=== PATIENT | male | born 1935 | race Caucasian/White ===

== ENCOUNTER 2016-12-08 17:52 | Emergency (ER) | payer MEDICARE ==
[~2016-12-08 17:52] MED LIST: EPINEPHRINE ABBOJECT 1 MG ONE; Magnesium Sulfate 1 GM/2 ML VIAL ONE
[2016-12-08 18:06] VITALS: PULSE 0
[2016-12-08 18:09] LABS: A-aADO2 452; ARTERIAL BLD GAS O2 SATURATION 100.6 % (95-100); ARTERIAL BLOOD GAS BASE EXCESS -22.1 (-2.0-2.0); ARTERIAL BLOOD GAS FIO2 100 %; ARTERIAL BLOOD GAS PO2 214 mmHg (75-100); ARTERIAL BLOOD GAS pH 6.98 (7.35-7.45)
--- NOTE | 2016-12-08 18:54 | ERPHSYRPT ---
- History of Present Illness Time Seen by Provider: 12/08/16 17:52 Source: family, EMS Exam Limitations: clinical condition Patient Subjective Stated Complaint: ems states pt at [facility] and collapsed. CPR started on scene. Triage Nursing Assessment: pt dusky, purple in color from nipple line up. pupils dilated and fixed. Cpr in progress upon arrival to eR. Pt intubated per ems 7.0 et tube 23cm at the lip. breath sounds positive. Epi 1mg given in route with 1 shock. CPR continued upon arrival to ER. Family notified and in waiting Room. pt being ventilated with ambu bag at 100%. breath sounds present. 16g Left External Juglar IV per Ems, IO noted to left lower leg with Ns infusing at a wide open rate per Ems. 20g RAC started per [facility] staff. Ns infusing w/o in External Jugular site. Timing/Duration: today Activities at Onset: other (He was exiting [facility] with prescriptions he picked up. He collapsed inside the store. CPR was begun by bystanders.) Quality: other (no known discomfort per bystanders. He never regained consciousness after collapse.) Aspirin Treatment Today: unknown Associated Symptoms: No seizure Prior Chest Pain/Cardiac Workup: recently seen/treated (for pneumonia, but famile report improvement from this.) Allergies/Adverse Reactions: No Known Drug Allergies Allergy (Unverified 12/08/16 18:02) Home Medications: Unobtainable [Unobtainable] 12/08/16 [History] - Review of Systems All Other Systems: Unable due to condition ( reports no chest pain or other evidence of complaints today prior to collapse.) - Past Medical History Pertinent Past Medical History: Yes Respiratory History: COPD, Pneumonia - Past Surgical History Past Surgical History: No - Social History Smoking Status: Unknown if ever smoked Drug Use: none Patient Lives Alone: No - Nursing Vital Signs Nursing Vital Signs: Initial Vital Signs Pulse Rate 0 L 12/08/16 17:52 Respiratory Rate 14 12/08/16 17:52 - Physical Exam Eye Exam: other (Pupils mid-dilated and fixed) Ears, Nose, Throat Exam: normal ENT inspection Neck Exam: normal inspection Respiratory Exam: other (equal BS with Ambu) Cardiovascular Exam: capillary refill >3 sec, other (No pulse unless CPR. ) Gastrointestinal/Abdomen Exam: soft, No normal bowel sounds Male Genitalia Exam: normal genitalia Extremity Exam: other (upper ext tristin skin tears when he fell. ) Neurologic Exam: other (Unresponsive) Skin Exam: mottled, other (purplish discoloration from nipples cephalad. Contusion to right forehead noted.), No normal color SpO2 Interpretation: airway management int. (ABG with severe acidemia, but excellent oxygenation with CPR.) Oxygen Delivery: Ambu-Bag Procedures - Additional Procedures Additional Procedures: arterial blood draw, CPR, cardioversion/defib - Course Nursing assessment & vital signs reviewed: Yes Ordered Tests: Active Orders 24 hr Category Date Time Status ARTERIAL BLOOD GASES Stat Lab 12/08/16 17:59 Completed Lab/Rad Data: Laboratory Results 12/08/16 Range/Units 17:59 Puncture Site RFEMORAL pCO2 38 (35-45) mmHg pO2 214 H* (75-100) mmHg Base Excess -22.1 L (-2.0-2.0) O2 Saturation 98.6 (94-100) g/dF ABG pH 6.98 L* (7.35-7.45) ABG HCO3 8.9 L* (22-28) ABG O2 Sat (Measured) 100.6 H (95-100) % Chuy Test NOT APPLICABLE A-a Gradient 452 a/A Ratio 0.32 Hemoglobin 13.9 Carboxyhemoglobin 1.3 (0.0-6.9) % THgb Methemoglobin 0.6 L (1.4-1.5) % Potassium 4.2 (3.5-5.1) Temperature 37.0 C POC O2 Flow Rate 100 % - Progress Progress: unchanged Progress Note: 12/08/16 18:59 ACLS protocol to exhaustion. Pt. pronounced at 1805. Family members notified. [facility] Snagger notified, who will sign certificate. Blood Culture(s) Obtained: No Antibiotics given: No Counseled pt/family regarding: diagnosis - Departure Time of Disposition: 18:05 Departure Disposition: Clinical Impression: Syncope and collapse Condition: Critical Care Time: Yes Critical Care Time(excluding separately billable procedures): 30-74 minutes Referrals: SAIGE FONSECA [Primary Care Provider] -
== END 2016-12-08 18:05 | disposition expired ==
LOC: ED 17:52
DX: R55 Syncope and collapse (principal)
CPT/HCPCS: 36600; 82375; 82803; 92950; 94799; 99285; J0171; J3475